=== PATIENT | female | born 1970 | race Caucasian/White ===

== ENCOUNTER → 2016-07-19 | Outpatient (CLI) | payer OTHER ==
[~2016-07-19] MED LIST: COLE1TAB2 PO; GADOBUTROL 7.5 MMOL/7.5 ML VIAL IV ONE; METH500T7 PO
--- NOTE | 2016-07-19 12:31 | KCIC ---
PROCEDURE MRI of the brain without and with contrast 07/19/2016 HISTORY Headaches and right sided facial numbness for the last 4 days. TECHNIQUE Unenhanced T1 weighted and FLAIR sagittal and axial and gradient echo, T2 weighted and diffusion weighted axial images of the brain were obtained. After the intravenous administration of 7 cc Gadavist, enhanced T1 weighted axial and coronal images of the brain were obtained. FINDINGS The ventricles and sulci are within normal limits in size and configuration. Patchy and several small focal areas of increased signal intensity are seen within the periventricular and subcortical white matter both cerebral hemispheres on the FLAIR and T2 weighted images. These measure 2 millimeters to 6 millimeters in size. Their MRI appearance is nonspecific. No acute parenchymal abnormality is seen. No area of abnormal contrast enhancement is noted. The paranasal sinuses are clear. Normal flow voids are seen within the major vascular structures surrounding the brain parenchyma. IMPRESSION Patchy and several small focal areas of abnormally increased signal intensity are seen within the white matter of both cerebral hemispheres on the FLAIR and T2 weighted images. Their MRI appearance is nonspecific. Differential etiologies would include areas of mild small vessel ischemic disease, a demyelinating disorder such as multiple sclerosis, and migraine headaches. Clinical correlation is recommended. No area of abnormal contrast enhancement is seen. No acute abnormality is definitely seen. Electronically signed by: Trevor Meyers MD (Jul 19, 2016 12:29:50)
== END | disposition home or self-care (01) ==
LOC: KCIC MRI 07:42
PROVIDERS: ATTEND Physician Assistant
DX: G35 Multiple sclerosis (principal); R20.0 Anesthesia of skin; I67.82 Cerebral ischemia
CPT/HCPCS: 70553; A9585